=== PATIENT | female | born 1955 | race Caucasian/White ===

== ENCOUNTER 2023-09-16 10:45 | Emergency (ER) | payer MEDICARE, SELFPAY ==
[2023-09-16 10:46] VITALS: BP 158/68; PULSE 73; RESP 16; TEMP 36.7; O2SAT 95; BMI 43.0
--- NOTE | 2023-09-16 11:10 | XRR_ITS ---
PROCEDURE INFORMATION: Exam: XR Right Knee Exam date and time: 09/16/2023 11:23 AM Age: 67 years old Clinical indication: Injury or trauma; Other: Knee popped ; Sprain or strain; Patella or knee; Right TECHNIQUE: Imaging protocol: Radiologic exam of the right knee. Views: 3 views. COMPARISON: No relevant prior studies available. FINDINGS: Bones/joints: No acute fracture or dislocation. Joint spaces are preserved. Soft tissues: Normal. XR/XR knee RT 3V* [id number] IMPRESSION: No acute fracture or dislocation.
--- NOTE | 2023-09-16 11:13 | ED_ITS ---
HPI - Extremity Injury (Lower) General: Chief Complaint: Extremity Injury, Lower Stated Complaint: Right knee pain and swelling Time Seen by Provider: 09/16/23 10:54 Source: patient Mode of arrival: ambulatory (with cane) Limitations: no limitations History of Present Illness: Patient is a 67-year-old female presents to ED today for evaluation of a right knee injury that she sustained 2 days ago after she was walking and accidentally twisted the knee. She states she immediately began noticing the knee swelling. She states immediately after the incident she was not able to bear weight but states the pain has improved to where now she can bear weight with the help of her cane which she uses normally. complaint: knee injury Onset (ago): day(s) (2 days ago) Injury: Right: knee Place: home Severity: moderate Relieving factors: immobilization Exacerbating factors: weight bearing, movement and palpation Context: walking Associated symptoms: Reports no associated symptoms Other symptoms: none Review of Systems Musc: Reports: joint pain (R knee) and joint swelling (R knee) Neuro: Denies: numbness in extremities, weakness in extremities or sensory changes Physical Exam Const: COMMON NORMALS: no acute distress, no limitations, alert and well nourished GENERAL APPEARANCE: cooperative Extremity: COMMON NORMALS: normal to inspection, capillary refill normal, no calf tenderness and no pedal edema GENERAL: Yes normal exam except as noted RIGHT LOWER EXTREMITY: Yes knee joint Right knee: Yes inspection (edema), Yes ROM (TTP posteriomedial R knee), Yes neurovascular exam (normal) and Yes other (no obvious joint laxity noted) Neuro: COMMON NORMALS: moves all extremities, no focal motor deficits and no sensory deficits noted SENSORIUM/ORIENTATION: Yes alert Course Vital Signs: Vital signs: Vital Signs Temperature 98.0 F 09/16/23 10:46 Pulse Rate 73 09/16/23 10:46 Respiratory Rate 16 09/16/23 10:46 Blood Pressure 158/68 09/16/23 10:46 Pulse Oximetry 95 09/16/23 10:46 Oxygen Delivery Me thod Room Air 09/16/23 10:46 MDM - Extremity Injury (Lower) Medical Decision Making XR negative for acute fx. Will CAPRI wrap. She can continue to be ambulatory with her cane. Recommend ice/elevation/compression wrap/sleeve and follow up with PCP in 1-2 weeks if pain does not continue to improve. Medical Records I reviewed the patient's medical records. XR interpretation done by ED provider, pending radiology final review Discharge Plan Discharge Patient Disposition: Home Clinical Impression: Injury of knee, right Qualifiers: Encounter type: initial encounter Qualified Code(s): S89.91XA - Unspecified injury of right lower leg, initial encounter Condition: Stable Prescriptions: New hydrocodone-acetaminophen 5-325 mg tablet 1 tab PO Q6H PRN (Reason: pain) Qty: 10 0RF Discharge Orders: Discharge ED (Routine); Ordered 09/16/23 Ordered By: Marissa Moreno Patient Instructions: Swollen Knee Joint (ED), Knee Pain (ED), Opioid Safety, Pain Management, RICE Therapy Coding Level of Care Code ED Hydraulic Press Operator for Marialuisa Mcintyre
--- NOTE | 2023-09-20 15:07 | W.ED.EXTPRO ---
HPI - Extremity Problem General: Chief complaint: Extremity Injury, Lower Stated complaint: Right knee pain and swelling Time Seen by Provider: 09/16/23 10:54 Source: patient Mode of arrival: ambulatory (with cane) Limitations: no limitations Course Vital Signs: Vital signs: Vital Signs Temperature 98.0 F 09/16/23 10:46 Pulse Rate 73 09/16/23 10:46 Respiratory Rate 16 09/16/23 10:46 Blood Pressure 158/68 09/16/23 10:46 Pulse Oximetry 95 09/16/23 10:46 Oxygen Delivery Me thod Room Air 09/16/23 10:46 MDM - Extremity (Nontraumatic) Lab Data Radiology Impressions Knee X-Ray 09/16/23 11:10 IMPRESSION: No acute fracture or dislocation. Discharge Plan Discharge Patient Disposition: Home Clinical Impression: Injury of knee, right Qualifiers: Encounter type: initial encounter Qualified Code(s): S89.91XA - Unspecified injury of right lower leg, initial encounter Condition: Stable Prescriptions: New hydrocodone-acetaminophen 5-325 mg tablet 1 tab PO Q6H PRN (Reason: pain) Qty: 14 0RF Discharge Orders: Discharge ED (Routine); Ordered 09/16/23 Ordered By: Marissa Moreno Patient Instructions: Swollen Knee Joint (ED), Knee Pain (ED), Opioid Safety, Pain Management, RICE Therapy Coding Level of Care Code ED Inspector [employer] for Marialuisa Mcintyre
== END 2023-09-16 11:58 | disposition home or self-care (01) ==
PROVIDERS: Emergency Provider Physician Assistant
DX: S89.91XA Unspecified injury of right lower leg, initial encounter (principal); X50.1XXA Overexertion from prolonged static or awkward postures, initial encounter
CPT/HCPCS: 73562; 99283